=== PATIENT | female | born 1965 | race Caucasian/White ===

== ENCOUNTER 2019-07-17 14:14 | Outpatient (CLI) | payer OTHER ==
[2014-10-08 10:25] VITALS: BP 178/100
[2019-07-17 15:37] LABS: eGFR (Non-African) > 60
== END 2019-07-17 14:19 ==
LOC: LAB 14:14
PROVIDERS: ATTEND Nurse Practitioner Family
DX: E83.52 Hypercalcemia (principal)
CPT/HCPCS: 36415; 80053; 84155; 84165